=== PATIENT | male | born 1995 | race African-American/Black ===

== ENCOUNTER 2021-09-21 06:05 | Emergency (ER) | payer SELFPAY ==
[~2021-09-21] VITALS: Ht 175.2 cm; Wt 101.8 kg
[~2021-09-21 06:05] MED LIST: AMOX250S5 PO; DEXAINTSOL PO; HYDR473S50 PO; TETRACAINESUCKERS MT
[2021-09-21] MEDS ORDERED: ONDA4TAB11 PO (07:10)
--- NOTE | 2021-09-21 07:10 | ED General ---
General Chief Complaint: Fever-Adult/Adol Stated Complaint: N/V,CHILLS Nursing Triage Note: Pt arrival to ER today with complaint of needing to be medically cleared to return to work. Pt states that he got sick at work yesterday and vomited 3 times, and went home. He states that he was told he had to be cleared to return to work. Pt states that he also felt hot/cold. Pt states that he took two Ibuprofens and slept and woke up feeling fine. Pt has no complaints today. Source of Information: Patient History of Present Illness Date Seen by Provider: Sep 21, 2021 Time Seen by Provider: 06:30 Initial Comments PT ARRIVES VIA EMS FROM HOME PT STATES HE HAD NAUSEA AND VOMITED X 3 YESTERDAY FELT HOT AND HAD SOME CHILLS YESTERDAY TOOK IBUPROFEN AND WENT TO SLEEP AND WOKE UP THIS AM AND FEELS FINE STATES HE CANNOT GO BACK TO WORK WITHOUT A WORK NOTE--WORKS AT [employer] NO DIARRHEA NO ABDOMINAL PAIN PT ABLE TO KEEP LIQUIDS DOWN TODAY PT DENIES ANY KNOWN SICK CONTACTS PT LIVES ALONE NO SUSPICIOUS FOODS PT HAS NOT HAD COVID-19 VACCINE PCP : NONE Allergies and Home Medications Allergies Coded Allergies: No Known Drug Allergies (Unverified , 10/05/15) Patient Home Medication List Home Medication List Reviewed: Yes Amoxicillin (Amoxicillin) 250 Mg/5 Ml Susp, 2 TSP PO BID Prescribed by: BEA GARCIA on 10/07/15 1240 Dexamethasone (Decadron Intensol Oral Solution (Repackaging)) 1 Mg/1 Ml Elizabeth, 2 TSP PO DAILY PRN for PAIN Prescribed by: BEA GARCIA on 10/07/15 1240 Hydrocodone/Acetaminophen (Lortab 10 mg-300 mg/15 ml Elxr) 473 Ml Solution, 2-3 TSP PO PRN Prescribed by: BEA GARCIA on 10/07/15 1240 Ondansetron (Ondansetron Odt) 4 Mg Tab.rapdis, 4 MG PO Q4H Prescribed by: NAM NATHAN on 09/21/21 0710 Tetracaine (Tetracaine Suckers) Armando Ea, 1 EA MT UD PRN for PAIN Prescribed by: BEA GARCIA on 10/07/15 1240 Review of Systems Review of Systems Constitutional: see HPI, chills EENTM: no symptoms reported Respiratory: no symptoms reported Cardiovascular: no symptoms reported Gastrointestinal: see HPI; No abdominal pain, No diarrhea; nausea, vomiting Genitourinary: no symptoms reported Musculoskeletal: no symptoms reported Skin: no symptoms reported Psychiatric/Neurological: No Symptoms Reported Hematologic/Lymphatic: No Symptoms Reported Immunological/Allergic: no symptoms reported Past Zgockte-Snectx-Kdshdo Hx Patient Social History Tobacco Use?: No Use of E-Cig and/or Vaping dev: No Substance use?: Yes Substance type: Marijuana Substance frequency: Couple times a week Alcohol Use?: Yes Alcohol type: Beer, Hard Liquor Alcohol Frequency: Couple times a week Pt feels they are or have been: No Immunizations Up To Date Influenza Vaccine Up-to-Date: No; Not Current Past Medical History Surgeries: No Respiratory: No Cardiac: No Neurological: No Genitourinary: No Gastrointestinal: No Musculoskeletal: No Endocrine: No HEENT: Yes Tonsilitis Loss of Vision: Denies Hearing Impairment: Denies Cancer: No Psychosocial: No Integumentary: No Blood Disorders: No Adverse Reaction/Blood Tranf: No Physical Exam Vital Signs Vital Signs - First Documented 09/21/21 06:27 Temp 36.0 Pulse 76 Resp 18 B/P (MAP) 136/99 (111) Pulse Ox 98 O2 Delivery Room Air Capillary Refill : Less Than 3 Seconds Height, Weight, BMI Height: 5'10.00" Weight: 225lbs. oz. 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 as Tested Skin: Normal Color, Warm/Dry Progress/Results/Core Measures Suspected Sepsis SIRS Temperature: Pulse: 76 Respiratory Rate: 18 Blood Pressure 136 /99 Mean: 111 Results/Orders Lab Results Laboratory Tests Test 09/21/21 06:23 Range/Units Influenza Type A (RT-PCR) Not Detected Not Detecte Influenza Type B (RT-PCR) Not Detected Not Detecte SARS-CoV-2 RNA (RT-PCR) Not Detected Not Detecte My Orders Orders - NAM NATHAN DO Influenza A And B By Pcr (09/21/21 06:33) Covid 19 Inhouse Test (09/21/21 06:33) Vital Signs/I&O 09/21/21 06:27 Temp 36.0 Pulse 76 Resp 18 B/P (MAP) 136/99 (111) Pulse Ox 98 O2 Delivery Room Air Capillary Refill : Less Than 3 Seconds Blood Pressure Mean: 111 Progress Note : Progress Note PLACED IN ISOLATION ROOM PPE WORN COVID-19 TESTING PERFORMED NO SYMPTOMS DURING ER STAY Departure Impression Primary Impression: Nausea & vomiting Disposition: 01 HOME, SELF-CARE Condition: Stable Departure-Patient Inst. Decision time for Depature: 07:09 Referrals: NO,LOCAL PHYSICIAN (PCP/Family) Primary Care Physician Patient Instructions: Nausea and Vomiting, Adult ED Add. Discharge Instructions: LOTS OF CLEAR LIQUIDS--WATER, BROTH, JELLO, GATORADE BRATS DIET--BANANAS, RICE, APPLESAUCE, TOAST, SALTINES FOLLOW UP WITH DR OF CHOICE IF NO BETTER--LIST PROVIDED All discharge instructions reviewed with patient and/or family. Voiced understanding. Scripts Ondansetron (Ondansetron Odt) 4 Mg Tab.rapdis 4 MG PO Q4H for Nausea/Vomiting, #10 TAB Prov: NAM NATHAN DO 09/21/21 Work/School Note: Local [employer] Staff Listing, Work Release Form Date Seen in the Emergency Department: Sep 21, 2021 Return to Work: Sep 22, 2021 Restrictions: No Restrictions NAM NATHAN DO Sep 21, 2021 07:10
[2021-09-21 07:18] VITALS: BP 127/82
== END 2021-09-21 07:32 | disposition home or self-care (01) ==
LOC: EDUNIT# 06:05 → ER 06:08
DX: R11.2 Nausea with vomiting, unspecified (principal); Z20.822 Contact with and (suspected) exposure to COVID-19
CPT/HCPCS: 87636; 99283

== ENCOUNTER 2022-07-27 08:50 | Emergency (ER) | payer SELFPAY ==
[~2022-07-27] VITALS: Ht 177.8 cm; Wt 104.3 kg
[~2022-07-27 08:50] MED LIST changes: +ONDA4TAB11 PO
[2022-07-27] MEDS ORDERED: ONDA4TAB11 PO (10:17)
--- NOTE | 2022-07-27 10:17 | ED General ---
General Chief Complaint: COVID19 Suspect/Confirmed Stated Complaint: FEVER, VOMITING, COUGH Nursing Triage Note: PT AMB TO [facility] 9 WITH COMPLAINTS OF NAUSEA, VOMITING, COUGHING AND FEVER. 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 Source of Information: Patient Exam Limitations: No Limitations History of Present Illness Date Seen by Provider: Jul 27, 2022 Time Seen by Provider: 09:35 Initial Comments 26-year-old male who is otherwise healthy presents emerged part for generally feeling unwell. He said my mild nonproductive cough for a couple of days. He started vomiting yesterday 2-3 times at work and got sent home. He has had a negative COVID test before returning to work. He denies any fevers but has had some chills. No abdominal pain. No changes in bowel or bladder habits. Allergies and Home Medications Allergies Coded Allergies: No Known Drug Allergies (Unverified , 10/05/15) Patient Home Medication List Home Medication List Reviewed: Yes Amoxicillin (Amoxicillin) 250 Mg/5 Ml Susp, 2 TSP PO BID Prescribed by: BEA GARCIA on 10/07/15 1240 Dexamethasone (Decadron Intensol Oral Solution (Repackaging)) 1 Mg/1 Ml Elizabeth, 2 TSP PO DAILY PRN for PAIN Prescribed by: BEA GARCIA on 10/07/15 1240 Hydrocodone/Acetaminophen (Lortab 10 mg-300 mg/15 ml Elxr) 473 Ml Solution, 2-3 TSP PO PRN Prescribed by: BEA GARCIA on 10/07/15 1240 Ondansetron (Ondansetron Odt) 4 Mg Tab.rapdis, 4 MG PO Q4H Prescribed by: NAM NATHAN on 09/21/21 0710 Ondansetron (Ondansetron Odt) 4 Mg Tab.rapdis, 4 MG PO Q4H Prescribed by: PANFILO YUAN MD on 07/27/22 1017 Tetracaine (Tetracaine Suckers) Armando Ea, 1 EA MT UD PRN for PAIN Prescribed by: BEA GARCIA on 10/07/15 1240 Review of Systems Review of Systems Constitutional: no symptoms reported EENTM: no symptoms reported Respiratory: cough Cardiovascular: no symptoms reported Gastrointestinal: nausea, vomiting Genitourinary: no symptoms reported Musculoskeletal: no symptoms reported Skin: no symptoms reported Psychiatric/Neurological: No Symptoms Reported Past Moqrogd-Ldnjfi-Ppktvp Hx Patient Social History Tobacco Use?: No Substance use?: Yes Substance type: Marijuana Alcohol Use?: Yes Alcohol Frequency: Several times a month Pt feels they are or have been: Unable to obtain Immunizations Up To Date Influenza Vaccine Up-to-Date: No; Not Current Past Medical History Surgeries: No Respiratory: No Cardiac: No Neurological: No Genitourinary: No Gastrointestinal: No Musculoskeletal: No Endocrine: No HEENT: Yes Tonsilitis Loss of Vision: Denies Hearing Impairment: Denies Cancer: No Psychosocial: No Integumentary: No Blood Disorders: No Adverse Reaction/Blood Tranf: No Family Medical History Reviewed Nursing Family Hx No Pertinent Family Hx Physical Exam Vital Signs Vital Signs - First Documented 07/27/22 08:58 Temp 37.3 Pulse 95 Resp 14 B/P (MAP) 142/101 (115) Pulse Ox 100 O2 Delivery Room Air Capillary Refill : Less Than 3 Seconds Height, Weight, BMI Height: 5'10.00" Weight: 225lbs. oz. 102.241092lf; 32.00 BMI Method: General Appearance: No Apparent Distress, WD/WN HEENT: PERRL/EOMI, TMs Normal, Normal ENT Inspection, Pharynx Normal Neck: Normal Inspection, Non Tender, Supple Respiratory: Chest Non Tender, Lungs Clear, Normal Breath Sounds, No Accessory Muscle Use, No Respiratory Distress Cardiovascular: Regular Rate, Rhythm, No Edema, No Gallop, No JVD, No Murmur, Normal Peripheral Pulses Gastrointestinal: Normal Bowel Sounds, No Organomegaly, No Pulsatile Mass, Non Tender, Soft Back: Normal Inspection, No CVA Tenderness, No Vertebral Tenderness Extremity: Normal Capillary Refill, Normal Inspection, Normal Range of Motion, Non Tender, No Calf Tenderness Neurologic/Psychiatric: Alert, Oriented x3, No Motor/Sensory Deficits, Normal 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, 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 Norm as Tested Skin: Normal Color, Warm/Dry Progress/Results/Core Measures Suspected Sepsis SIRS Temperature: Pulse: 95 Respiratory Rate: 14 Blood Pressure 142 /101 Mean: 115 Results/Orders Lab Results Laboratory Tests Test 07/27/22 09:01 Range/Units SARS-CoV-2 RNA (RT-PCR) Not Detected Not Detecte My Orders Orders - PANFILO YUAN DO Covid 19 Inhouse Test (07/27/22 09:12) Vital Signs/I&O 07/27/22 07/27/22 08:58 10:39 Temp 37.3 Pulse 95 82 Resp 14 B/P (MAP) 142/101 (115) 155/97 Pulse Ox 100 100 O2 Delivery Room Air Room Air Capillary Refill : Less Than 3 Seconds Blood Pressure Mean: 115 Departure Communication (Admissions) Patient is hemodynamically stable with no red flag symptoms. No vomiting here and tolerating p.o. prior to discharge. COVID test is negative and exam is reassuring . He is discharged in stable condition. Impression Primary Impression: Nausea & vomiting Qualified Codes: R11.2 - Nausea with vomiting, unspecified Disposition: HOME, SELF-CARE Condition: Stable Departure-Patient Inst. Decision time for Depature: 10:17 Referrals: NO,LOCAL PHYSICIAN (PCP/Family) Primary Care Physician Patient Instructions: Nausea and Vomiting, Adult Add. Discharge Instructions: Increase your fluids at home, rest. Take nausea medicine as prescribed as needed. Return to the emergency department for any severe concerns All discharge instructions reviewed with patient and/or family. Voiced underst anding. Scripts Ondansetron (Ondansetron Odt) 4 Mg Tab.rapdis 4 MG PO Q4H for Nausea for 7 Days, #40 TAB Prov: PANFILO YUAN DO 07/27/22 PANFILO YUAN DO Jul 27, 2022 10:17
[2022-07-27 10:39] VITALS: BP 155/97
== END 2022-07-27 10:39 | disposition home or self-care (01) ==
LOC: EDUNIT# 08:50 → ER 08:53
DX: R11.2 Nausea with vomiting, unspecified (principal); Z20.822 Contact with and (suspected) exposure to COVID-19; Z28.310 Unvaccinated for COVID-19
CPT/HCPCS: 87636; 99283